=== PATIENT | male | born 1965 | race Caucasian/White ===

== ENCOUNTER 2018-09-05 16:37 | Emergency (ER) | payer BC, OTHER ==
[2018-09-05] MEDS ORDERED: Sodium Chloride 0.9% 10 ML Syringe FLUSH PRN (16:48)
--- NOTE | 2018-09-05 16:56 | EDM.PDOC ---
ED HPI GENERAL MEDICAL PROBLEM - General Chief Complaint: Neurological Problem Stated Complaint: TINGLING IN ARMS,CONFUSION Time Seen by Provider: 09/05/18 16:40 Source of Information: Reports: Patient, Family History Limitations: Reports: No Limitations - History of Present Illness INITIAL COMMENTS - FREE TEXT/NARRATIVE: Pt. states that he started having L frontal headache and paresthesia in L upper extremity. Pt. states that he was on his way home from [place] around 12: 15 PM. He states that he continued to have these symptoms and had a nap at 1:30 PM. States that he felt a little better when he woke up but symptoms have been intermittent since onset at noon. reports expressive aphasia and was confused about a gun he was putting together. When he woke up around 1530 he was still confused, complaining of severe headache, and ataxia to the point he felt as though he was going to fall over when he stood. His family drove him to the ER. He was not dysarthric on arrival to ER but was complaining of mild paresthesia to both upper extremities that has since completely resolve. To note , the patient has some chronic neuropathy in his hands and feet from diabetes but he states that the symptoms were worse earlier, but now are no worse than normal. As of now, the patient's only complaint is that of headache. The rest of his symptoms have resolved or are no worse than normal. He denies any recent illnesses. No history of cerebrovascular disease. No chest pain or shortness of breath. No nausea or vomiting. He is not currently on blood thinners or anticoagulation. Denies any recent head trauma. No history of current of previously diagnosed intercranial pathology. Onset Date: 09/05/18 - Related Data Allergies Allergy/AdvReac Type Severity Reaction Status Date / Time No Known Allergies Allergy Verified 03/16/15 06:52 Home Meds: Home Meds Aspirin [Halfprin] 81 mg PO DAILY 03/14/15 [History] Canagliflozin [Invokana] 1 tab PO DAILY 03/14/15 [History] Cyanocobalamin (Vitamin B-12) [Vitamin B-12] 500 mcg PO DAILY 03/14/15 [History] Glimepiride 1 tab PO DAILY 03/14/15 [History] Insulin Glargine,Hum.Rec.Anlog [Kai Polanco] 65 units SQ BEDTIME 03/14/15 [ History] Liraglutide [Victoza 2-Kameron] 1.8 mg SQ DAILY 03/14/15 [History] Lisinopril [Prinivil] 10 mg PO DAILY 03/14/15 [History] Lysine 1 tab PO BID 03/14/15 [History] Multivitamin [Multivitamins] 1 tab PO DAILY 03/14/15 [History] [place]-3 Fatty Acids [[place]-3] 1 tab PO DAILY 03/14/15 [History] Vardenafil HCl [Levitra] 10 mg PO DAILY 03/14/15 [History] atorvaSTATin [Lipitor] 10 mg PO BEDTIME 03/14/15 [History] metFORMIN [Glucophage] 1 tab PO BID 03/14/15 [History] Past Medical History Other HEENT History: myopia, presbyopia Other Cardiovascular History: hyperlipidemia Other Gastrointestinal History: blood in stools Other Genitourinary History: TYSTICULAR HYPOFUNCTION, TORSION OF TESTIS ED ROS GENERAL - Review of Systems Review Of Systems: See Below Constitutional: Reports: No Symptoms HEENT: Reports: No Symptoms Respiratory: Reports: No Symptoms Cardiovascular: Reports: No Symptoms Endocrine: Reports: No Symptoms GI/Abdominal: Reports: No Symptoms : Reports: No Symptoms Musculoskeletal: Reports: No Symptoms Skin: Reports: No Symptoms Neurological: Reports: No Symptoms, Other (see HPI. Symptoms had resolved on arrival to ER.) Psychiatric: Reports: No Symptoms Hematologic/Lymphatic: Reports: No Symptoms Immunologic: Reports: No Symptoms ED EXAM, GENERAL - Physical Exam Exam: See Below Exam Limited By: No Limitations General Appearance: Alert, WD/WN, No Apparent Distress Eye Exam: Bilateral Eye: EOMI, Normal Fundi, Normal Inspection, PERRL Ears: Normal External Exam, Hearing Grossly Normal, Normal TMs Nose: Normal Inspection, Normal Mucosa, No Blood Throat/Mouth: Normal Inspection, Normal Lips, Normal Teeth, Normal Gums, Normal Oropharynx, Normal Voice, No Airway Compromise Head: Atraumatic, Normocephalic Neck: Normal Inspection, Supple, Non-Tender, Full Range of Motion Respiratory/Chest: No Respiratory Distress, Lungs Clear, Normal Breath Sounds, No Accessory Muscle Use, Chest Non-Tender Cardiovascular: Normal Peripheral Pulses, Regular Rate, Rhythm, No Edema, No Gallop, No JVD, No Murmur, No Rub Peripheral Pulses: 3+: Radial (L), Radial (R), Dorsalis Pedis (L), Dorsalis Pedis (R) GI/Abdominal: Soft, Non-Tender, No Organomegaly, No Distention, No Abnormal Bruit, No Mass (Male) Exam: Deferred Rectal (Males) Exam: Deferred Back Exam: Normal Inspection, Full Range of Motion Extremities: Normal Inspection, Normal Range of Motion, Non-Tender, No Pedal Edema, Normal Capillary Refill Neurological: Alert, Oriented, CN II-XII Intact, Normal Cognition, Normal Gait, Normal Reflexes, No Motor/Sensory Deficits Psychiatric: Normal Affect, Normal Mood Skin Exam: Warm, Dry, Intact, Normal Color, No Rash Lymphatic: No Adenopathy EKG INTERPRETATION Rhythm: NSR Crane: Normal P-Wave: Present QRS: Normal ST-T: Normal QT: Normal Course - Orders/Labs/Meds Orders: Active Orders 24 hr Category Date Time Status EKG Documentation Completion [RC] STAT Care 09/05/18 16:48 Ordered Morphine Med 09/05/18 17:51 Once 4 mg IVPUSH ONETIME ONE Sodium Chloride 0.9% [Saline Flush] Med 09/05/18 16:48 Ordered 10 ml FLUSH ASDIRECTED PRN Peripheral IV Insertion Adult [OM.PC] Routine Oth 09/05/18 16:49 Ordered Medication Orders Sodium Chloride (Saline Flush) 10 ml FLUSH ASDIRECTED PRN PRN Reason: Keep Vein Open Labs: Laboratory Tests 09/05/18 09/05/18 09/05/18 Range/Units 16:40 16:55 16:55 WBC 5.7 (4.0-10.0) x10^3/uL RBC 4.87 (4.5-6.0) x10^6/uL Hgb 15.7 (14.0-18.0) g/dL Hct 44.7 (40.0-52.0) % MCV 91.8 (78.0-93.0) fL MCH 32.2 H (26.0-32.0) pg MCHC 35.1 (32.0-36.0) g/dL RDW Coeff of Fabrice 13.1 (10.0-15.0) % Plt Count 167 (130-400) x10^3/uL Neut % (Auto) 70.6 (50.0-80.0) % Lymph % (Auto) 21.0 L (25.0-50.0) % [place] % (Auto) 6.1 (2.0-11.0) % Eos % (Auto) 1.8 (0.0-4.0) % Baso % (Auto) 0.5 (0.2-1.2) % PT 10.3 (10.0-12.8) SEC INR 0.9 L (2.0-3.5) Sodium (138-146) mmol/L Potassium (3.5-4.9) mmol/L Chloride (98-109) mmol/L Carbon Dioxide (24-29) mmol/L Anion Gap (10-20) mmol/L BUN (8-26) mg/dL Creatinine (0.6-1.3) mg/dL Est Cr Clr Drug Dosing Estimated GFR (MDRD) Glucose (70-105) mg/dL POC Glucose 165 H (74-106) mg/dL Calcium (8.5-10.1) mg/dL Corrected Calcium (8.5-10.1) mg/dL Phosphorus (2.6-4.7) mg/dL Magnesium (1.8-2.4) mg/dL Total Bilirubin (0.2-1.0) mg/dL AST (15-37) U/L ALT (16-63) U/L Alkaline Phosphatase (46-116) U/L POC Troponin I (0.00-0.08) ng/mL Troponin I C-Reactive Protein (<=0.9) mg/dL Total Protein (6.4-8.2) g/dL Albumin (3.4-5.0) g/dL Globulin Albumin/Globulin Ratio 09/05/18 09/05/18 Range/Units 16:55 17:05 WBC (4.0-10.0) x10^3/uL RBC (4.5-6.0) x10^6/uL Hgb (14.0-18.0) g/dL Hct (40.0-52.0) % MCV (78.0-93.0) fL MCH (26.0-32.0) pg MCHC (32.0-36.0) g/dL RDW Coeff of Fabrice (10.0-15.0) % Plt Count (130-400) x10^3/uL Neut % (Auto) (50.0-80.0) % Lymph % (Auto) (25.0-50.0) % [place] % (Auto) (2.0-11.0) % Eos % (Auto) (0.0-4.0) % Baso % (Auto) (0.2-1.2) % PT (10.0-12.8) SEC INR (2.0-3.5) Sodium 139 (138-146) mmol/L Potassium 4.3 (3.5-4.9) mmol/L Chloride 103 (98-109) mmol/L Carbon Dioxide 25 (24-29) mmol/L Anion Gap 15.3 (10-20) mmol/L BUN 13 (8-26) mg/dL Creatinine 0.7 (0.6-1.3) mg/dL Est Cr Clr Drug Dosing TNP Estimated GFR (MDRD) > 60 Glucose 195 H (70-105) mg/dL POC Glucose (74-106) mg/dL Calcium 9.2 (8.5-10.1) mg/dL Corrected Calcium 9.12 (8.5-10.1) mg/dL Phosphorus 3.3 (2.6-4.7) mg/dL Magnesium 2.2 (1.8-2.4) mg/dL Total Bilirubin 0.6 (0.2-1.0) mg/dL AST 20 (15-37) U/L ALT 44 (16-63) U/L Alkaline Phosphatase 89 (46-116) U/L POC Troponin I 0.00 (0.00-0.08) ng/mL Troponin I Cancelled C-Reactive Protein 0.2 (<=0.9) mg/dL Total Protein 7.5 (6.4-8.2) g/dL Albumin 4.1 (3.4-5.0) g/dL Globulin 3.4 Albumin/Globulin Ratio 1.21 Meds: Medications Generic Name Dose Route Start Last Admin Trade Name Freq PRN Reason Stop Dose Admin Sodium Chloride 10 ml 09/05/18 16:48 Saline Flush FLUSH ASDIRECTED PRN Keep Vein Open - Radiology Interpretation Free Text/Narrative:: CT brain without contrast is negative Departure - Departure Time of Disposition: 17:50 Disposition: DC/Tfer to Acute Hospital 02 Clinical Impression: TIA (transient ischemic attack) - Discharge Information Referrals: Theresa Perdue PA-C [Primary Care Provider] - Forms: ED Department Discharge, Interfacility Transfer EMTALA - Problem List Review Problem List Initiated/Reviewed/Updated: Yes - My Orders Last 24 Hours: My Active Orders 09/05/18 16:48 EKG Documentation Completion [RC] STAT Sodium Chloride 0.9% [Saline Flush] 10 ml FLUSH ASDIRECTED PRN 09/05/18 16:49 Peripheral IV Insertion Adult [OM.PC] Routine 09/05/18 17:51 Morphine 4 mg IVPUSH ONETIME ONE - Assessment/Plan Last 24 Hours: My Active Orders 09/05/18 16:48 EKG Documentation Completion [RC] STAT Sodium Chloride 0.9% [Saline Flush] 10 ml FLUSH ASDIRECTED PRN 09/05/18 16:49 Peripheral IV Insertion Adult [OM.PC] Routine 09/05/18 17:51 Morphine 4 mg IVPUSH ONETIME ONE Plan: Pt. will be transferred to [facility]. He is a code 1. I spoke with Dr. Noble, neurology at [place]. He will be admitted through the hospitalist and will not be a stroke code as his NIH scale is [address] the entire ER visit. He was given morphine 4mg IV for his headache. He will be transported via [facility] ground ambulance for MRA and neuro work-up. Family is in attendance and will be accompanying patient.
[2018-09-05 17:05] LABS: ANION GAP 15.3 mmol/L (10-20); CHLORIDE,CL 103 mmol/L (98-109); SODIUM,NA 139 mmol/L (138-146)
--- NOTE | 2018-09-05 17:08 | CT ---
[id number] CT/CT Head Stroke Protocol Exam: CT Head Stroke Protocol Clinical Data: NEUROLOGIC DEFICIT COMPARISON: NO PREVIOUS SIMILAR EXAM IS AVAILABLE FINDINGS: There is no mass or mass effect. There is no hemorrhage or hydrocephalus. There are no sites of abnormal attenuation. There is no hyperdense middle cerebral artery sign. The aspect score is 10. There are no extra-axial fluid collections. IMPRESSION: NEGATIVE PLAIN CT BRAIN. Ignacio Villasenor MD 09/05/18 [id number] Thank you for allowing us to participate in the care of your patient.
[2018-09-05] MEDS ORDERED: Morphine 4 MG/ML Syringe IVPUSH ONE (17:51)
== END 2018-09-05 18:10 | disposition short-term general hospital (02) ==
LOC: VM.ED 16:37
DX: G45.9 Transient cerebral ischemic attack, unspecified (principal); Z79.82 Long term (current) use of aspirin; Z79.899 Other long term (current) drug therapy
CPT/HCPCS: 70450; 80053; 82962; 83735; 84100; 84484; 85025; 85610; 86140; 93005; 96374; 99291-25; 99292

== ENCOUNTER 2022-04-10 06:53 | Day surgery (SDC) | payer BC ==
[2022-04-10] MEDS: Lactated Ringers 1,000 ML IV SCH (07:12)
[2022-04-10] MEDS ORDERED: fentaNYL 100 MCG/2 ML SDV ONE (08:29)
[2022-04-10] MEDS ORDERED: Propofol 200 MG/20 ML SDV ONE ×2 (08:29→08:40)
[2022-04-10 09:51] VITALS: BP 112/58; PULSE 80
== END 2022-04-10 10:19 | disposition home or self-care (01) ==
LOC: VM.SDS 06:53
PROVIDERS: ATTEND Family Medicine
DX: Z12.11 Encounter for screening for malignant neoplasm of colon (principal); D12.7 Benign neoplasm of rectosigmoid junction; D12.0 Benign neoplasm of cecum; K57.30 Diverticulosis of large intestine without perforation or abscess without bleeding; I10 Essential (primary) hypertension; E11.40 Type 2 diabetes mellitus with diabetic neuropathy, unspecified; G47.33 Obstructive sleep apnea (adult) (pediatric); E66.9 Obesity, unspecified; I48.91 Unspecified atrial fibrillation; G45.9 Transient cerebral ischemic attack, unspecified; E78.2 Mixed hyperlipidemia; Z86.010 Personal history of colon polyps; Z98.890 Other specified postprocedural states; Z79.899 Other long term (current) drug therapy; Z79.4 Long term (current) use of insulin; Z87.891 Personal history of nicotine dependence; Z68.39 Body mass index [BMI] 39.0-39.9, adult; Z79.84 Long term (current) use of oral hypoglycemic drugs
CPT/HCPCS: 00811; 82947; J2704; J3010; J7120

== ENCOUNTER 2023-04-06 00:59 | Emergency (ER) | payer BC ==
[2023-04-06] MEDS ORDERED: methylPREDNISolone Sodium Succinate 125 MG/2 ML SDV IVPUSH ONE (01:03)
[2023-04-06] MEDS ORDERED: diphenhydrAMINE 50 MG/ML SDV IVPUSH ONE ×2 (01:03→02:08)
[2023-04-06] MEDS ORDERED: Famotidine 20 MG/2 ML SDV IVPUSH ONE (01:04)
[2023-04-06 01:47] VITALS: PULSE 102
[2023-04-06 02:23] VITALS: BP 138/86
[2023-04-06] MEDS ORDERED: diphenhydrAMINE 25 MG Cap PO ONE (03:00)
== END 2023-04-06 03:03 | disposition home or self-care (01) ==
LOC: VM.ED 00:59
DX: T78.40XA Allergy, unspecified, initial encounter (principal); I10 Essential (primary) hypertension; I48.91 Unspecified atrial fibrillation; E78.5 Hyperlipidemia, unspecified; E11.9 Type 2 diabetes mellitus without complications; E66.9 Obesity, unspecified; Z79.82 Long term (current) use of aspirin; Z79.4 Long term (current) use of insulin; Z79.01 Long term (current) use of anticoagulants; Z79.899 Other long term (current) drug therapy
CPT/HCPCS: 96374; 96375; 96376; 99283; 99284; A9270; J1200; J2930; J3490